=== PATIENT | female | born 1990 | race Caucasian/White ===

== ENCOUNTER 2017-03-18 12:43 | Outpatient (CLI) | payer BC ==
--- NOTE | 2017-03-18 17:15 | XRAY Report ---
EXAM: CHEST RADIOGRAPHY EXAM DATE: 03/18/2017 01:18 PM. CLINICAL HISTORY: R50.9. COMPARISON: None. TECHNIQUE: 2 views. FINDINGS: Lungs/Pleura: There is right lower lobe infiltrate present. No effusion or pneumothorax. Mediastinum: Heart and mediastinal contours are unremarkable. Other: None. IMPRESSION: Right lower lobe infiltrate. [facility] Referring Provider Line: [phone] SITE ID: [id number]
== END 2017-03-18 12:44 | disposition home or self-care (01) ==
LOC: LAB 12:43
PROVIDERS: ATTEND Physician Assistant Medical
DX: R91.8 Other nonspecific abnormal finding of lung field (principal)
CPT/HCPCS: 71020; 87275; 87276

== ENCOUNTER 2020-08-18 08:00 | Outpatient (CLI) | payer BC, OTHER ==
--- NOTE | 2020-08-19 15:10 | XRAY Report ---
PROCEDURE: Foot 2 View LT INDICATIONS: Foot pain TECHNIQUE: 2 views of the foot were acquired. COMPARISON: June 19, 2015 FINDINGS: Bones: No fractures or dislocations. No suspicious bony lesions. Soft tissues: No tibiotalar joint effusion. Achilles tendon appears normal. IMPRESSION: Unremarkable left foot radiographs Reviewed by: Isaiah Dolan MD on 08/18/2020 11:45 AM PDT Approved by: Isaiah Dolan MD on 08/18/2020 11:45 AM PDT Station ID: [id number]
== END 2020-08-18 23:59 | disposition home or self-care (01) ==
LOC: DI.N 08:00
PROVIDERS: ATTEND Nurse Practitioner
DX: M79.672 Pain in left foot (principal)

== ENCOUNTER 2020-12-25 08:00 | Outpatient (CLI) | payer OTHER ==
[2020-12-25 18:10] LABS: BASOPHILS # (AUTO) 0.1 10^3/uL (0.0-0.1); BASOPHILS % (AUTO) 0.8 %; EOSINOPHILS # (AUTO) 0.1 10^3/uL (0.0-0.7); EOSINOPHILS % (AUTO) 1.3 %; HCT - HEMATOCRIT 38.3 % (37.0-47.0); HGB - HEMOGLOBIN 11.9 g/dL (12.0-16.0); LYMPHOCYTES # (AUTO) 1.9 10^3/uL (1.5-3.5); LYMPHOCYTES % (AUTO) 24.6 %; MEAN CORPUSCULAR HEMOGLOBIN 26.7 pg (27.0-31.0); MEAN CORPUSCULAR HGB CONC 31.1 g/dL (32.0-36.0); MEAN CORPUSCULAR VOLUME 86.1 fL (81.0-99.0); MEAN PLATELET VOLUME 10.1 fL (7.9-10.8); MONOCYTES # (AUTO) 0.6 10^3/uL (0.0-1.0); MONOCYTES % (AUTO) 7.4 %; NEUTROPHILS % (AUTO) 65.8 %; PLT - PLATELET COUNT 333 10^3/uL (130-450); RED BLOOD COUNT 4.45 10^6/uL (4.20-5.40); WHITE BLOOD COUNT 7.6 x10^3/uL (4.8-10.8)
[2020-12-25 18:42] LABS: ALBUMIN/GLOBULIN RATIO 1.2 (1.0-2.2); BILIRUBIN,TOTAL 0.6 mg/dL (0.2-1.0); CREATININE 0.8 mg/dL (0.4-1.0); POTASSIUM 3.9 mmol/L (3.5-5.0); TOTAL PROTEIN 7.4 g/dL (6.7-8.2)
[2020-12-26 12:56] LABS: HEPATITIS B SURFACE ANTIGEN NON-REACTIVE (NON-REACTIVE)
[2020-12-26 12:57] LABS: HEPATITIS C ANTIBODY NON-REACTIVE (NON-REACTIVE)
[2020-12-26 14:46] LABS: HIV AG/AB 4TH GEN NON-REACTIVE (NON-REACTIVE)
[2020-12-28 15:26] LABS: NIL 0.02 IU/mL
== END 2020-12-25 23:59 | disposition home or self-care (01) ==
LOC: LAB.WCP 08:00
PROVIDERS: ATTEND Physician Assistant
DX: L94.0 Localized scleroderma [morphea] (principal)
CPT/HCPCS: 36415; 80053; 85025; 86480; 86803; 87340; 87389

== ENCOUNTER 2021-02-18 13:23 | Outpatient (CLI) | payer OTHER ==
[2021-02-18 18:19] LABS: BASOPHILS # (AUTO) 0.1 10^3/uL (0.0-0.1); BASOPHILS % (AUTO) 0.8 %; EOSINOPHILS # (AUTO) 0.1 10^3/uL (0.0-0.7); EOSINOPHILS % (AUTO) 1.8 %; HCT - HEMATOCRIT 38.7 % (37.0-47.0); HGB - HEMOGLOBIN 11.5 g/dL (12.0-16.0); LYMPHOCYTES # (AUTO) 1.8 10^3/uL (1.5-3.5); LYMPHOCYTES % (AUTO) 22.1 %; MEAN CORPUSCULAR HEMOGLOBIN 26.1 pg (27.0-31.0); MEAN CORPUSCULAR HGB CONC 29.7 g/dL (32.0-36.0); MEAN PLATELET VOLUME 9.7 fL (7.9-10.8); MONOCYTES # (AUTO) 0.6 10^3/uL (0.0-1.0); MONOCYTES % (AUTO) 6.9 %; NEUTROPHILS # (AUTO) 5.4 10^3/uL (1.5-6.6); NEUTROPHILS % (AUTO) 67.9 %; PLT - PLATELET COUNT 317 10^3/uL (130-450); RED CELL DISTRIBUTION WIDTH 14.7 % (12.0-15.0)
[2021-02-18 18:42] LABS: ALBUMIN/GLOBULIN RATIO 1.2 (1.0-2.2); BILIRUBIN,TOTAL 0.4 mg/dL (0.2-1.0); CALCIUM 9.4 mg/dL (8.5-10.3); CREATININE 0.9 mg/dL (0.4-1.0); POTASSIUM 3.9 mmol/L (3.5-5.0); TOTAL PROTEIN 7.4 g/dL (6.7-8.2)
== END 2021-02-18 23:59 | disposition home or self-care (01) ==
LOC: LAB.WCP 13:23
PROVIDERS: ATTEND Physician Assistant
DX: L94.0 Localized scleroderma [morphea] (principal)
CPT/HCPCS: 36415; 80053; 82955; 85025

== ENCOUNTER 2021-03-18 08:44 | Outpatient (CLI) | payer OTHER ==
--- NOTE | 2021-03-19 07:52 | Ultrasound Report ---
LIMITED ULTRASOUND OF LEFT BREAST: 03/18/2021 CLINICAL: Palpable left breast lump. Comparison is made to exam dated: 03/18/2021 mammogram - [facility]. Real-time ultrasound of the left breast 9 o'clock region was performed. Rucker scale images of the re al-time examination were reviewed. No significant abnormalities were seen sonographically in the left breast. IMPRESSION: NEGATIVE There is no sonographic evidence of malignancy. There is no abnormality seen in the left breast to correspond with the area of clinical concern and p alpable abnormality in the middle depth of the inner aspect of the breast, however, recommend clinic al follow up for persistent or worsening symptoms, or development of any clinically suspicious findin gs. Findings and recommendations were conveyed to the patient during today's evaluation. This exam was interpreted at Station ID: [id number]. Electronically Signed By: Fidel Bocanegra M.D. aty/:03/18/2021 10:16:32 Ultrasound BI-RADS: 1 Negative BI-RADS CATEGORY: (1) - 1 Unspecified - other recall n/a LATERALITY: (B)
--- NOTE | 2021-03-19 07:52 | Mammography Report ---
BILATERAL DIGITAL DIAGNOSTIC MAMMOGRAM 3D/2D: 03/18/2021 CLINICAL: Baseline exam. Palpable left breast lump. No prior exams were available for comparison. There are scattered fibroglandular elements in both br easts. No significant masses, calcifications, or other findings are seen in either breast. IMPRESSION: INCOMPLETE: NEEDS ADDITIONAL IMAGING EVALUATION There is no abnormality seen in the left breast to correspond with the area of clinical concern and p alpable abnormality indicated by triangular marker in the middle depth of the inner aspect of the lef t breast. An ultrasound is recommended for further evaluation and is scheduled to immediately follow this exami nation. This exam was interpreted at Station ID: [id number]. NOTE: For mammograms, a report in lay terms will be sent to the patient. Approximately 15% of breast malignancies will not be visualized mammographically. In the management of a palpable breast mass, a negative mammogram must not discourage biopsy of a clinically suspicious lesion. Electronically Signed By: Fidel Bocanegra M.D. aty/:03/18/2021 09:39:07 ACR BI-RADS Category 0: Incomplete 3340F PARENCHYMAL PATTERN: (A) - The breast(s) demonstrate(s) scattered fibroglandular densities. BI-RADS CATEGORY: (0) - 0 Ultrasound [id number] Immediate follow-up LATERALITY: (L)
== END 2021-03-18 08:45 | disposition home or self-care (01) ==
LOC: DI 08:44
PROVIDERS: ATTEND Family Medicine
DX: N63.20 Unspecified lump in the left breast, unspecified quadrant (principal)

== ENCOUNTER 2021-05-21 08:00 | Outpatient (CLI) | payer OTHER ==
[2021-05-21 17:53] LABS: BASOPHILS # (AUTO) 0.1 10^3/uL (0.0-0.1); BASOPHILS % (AUTO) 0.9 %; EOSINOPHILS # (AUTO) 0.1 10^3/uL (0.0-0.7); EOSINOPHILS % (AUTO) 1.3 %; HCT - HEMATOCRIT 36.9 % (37.0-47.0); HGB - HEMOGLOBIN 11.5 g/dL (12.0-16.0); LYMPHOCYTES # (AUTO) 1.9 10^3/uL (1.5-3.5); LYMPHOCYTES % (AUTO) 23.2 %; MEAN CORPUSCULAR HEMOGLOBIN 26.4 pg (27.0-31.0); MEAN CORPUSCULAR HGB CONC 31.2 g/dL (32.0-36.0); MEAN CORPUSCULAR VOLUME 84.6 fL (81.0-99.0); MEAN PLATELET VOLUME 11.1 fL (7.9-10.8); MONOCYTES # (AUTO) 0.5 10^3/uL (0.0-1.0); MONOCYTES % (AUTO) 5.9 %; NEUTROPHILS # (AUTO) 5.4 10^3/uL (1.5-6.6); NEUTROPHILS % (AUTO) 68.3 %; PLT - PLATELET COUNT 317 10^3/uL (130-450); RED BLOOD COUNT 4.36 10^6/uL (4.20-5.40); RED CELL DISTRIBUTION WIDTH 13.7 % (12.0-15.0)
== END 2021-05-21 23:59 | disposition home or self-care (01) ==
LOC: LAB.WCP 08:00
PROVIDERS: ATTEND Physician Assistant
DX: L94.0 Localized scleroderma [morphea] (principal)
CPT/HCPCS: 36415; 85025

== ENCOUNTER 2021-06-24 15:31 | Outpatient (CLI) | payer OTHER ==
[2021-06-24 19:21] LABS: THYROID STIMULATING HORMONE 3.81 uIU/mL (0.34-5.60)
[2021-06-24 19:26] LABS: HCG,QUALITATIVE BLOOD NEGATIVE
== END 2021-06-24 15:32 | disposition home or self-care (01) ==
LOC: LAB.N 15:31
PROVIDERS: ATTEND Family Medicine
DX: N93.9 Abnormal uterine and vaginal bleeding, unspecified (principal)
CPT/HCPCS: 36415; 81599; 84402; 84403; 84443; 84703

== ENCOUNTER 2021-07-02 08:52 | Outpatient (CLI) | payer OTHER ==
--- NOTE | 2021-07-02 21:25 | Ultrasound Report ---
PROCEDURE: Pelvic w/Transvaginal INDICATIONS: ABN UTERINE BLEEDING TECHNIQUE: Real-time scanning was performed of the pelvic organs, with image documentation. Additional endovagi nal scanning was necessary due to incomplete visualization of the adnexal and endometrial structures by transabdominal scanning. COMPARISON: None. FINDINGS: Transabdominal scanning: Limited scanning through the kidneys shows no hydronephrosis. No pathologi c free abdominal or pelvic fluid. Endovaginal scanning: Uterus: Uterus is enlarged measuring 1.7 x 4.5 x 6.3 cm. The endometrium measures 11 mm in combined thickness. While it is somewhat heterogeneous in appearance, no focal mass is identified. Nabothian cysts are noted. Ovaries: Right ovary measures 4.4 x 3.0 x 3.1 cm, volume 21 cc. Left ovary measures 5.2 x 2.1 x 3.0 cm, volume 17 cc. Focus of decreased echogenicity is present within the left ovary measuring 23 x 14 x 13 mm. IMPRESSION: Heterogeneous appearance of the endometrium without focal mass. As clinically indicated, interval ult rasound follow-up may be obtained. Small simple left ovarian cyst. Reviewed by: Maria G Bunn MD on 07/02/2021 9:23 PM PST Approved by: Maria G Bunn MD on 07/02/2021 9:23 PM PST Station ID: [id number]
== END 2021-07-02 08:53 | disposition home or self-care (01) ==
LOC: DI 08:52
PROVIDERS: ATTEND Family Medicine
DX: N93.9 Abnormal uterine and vaginal bleeding, unspecified (principal); N83.292 Other ovarian cyst, left side

== ENCOUNTER 2021-09-17 10:50 | Outpatient (CLI) | payer OTHER ==
[2021-09-17 17:43] LABS: BASOPHILS # (AUTO) 0.1 10^3/uL (0.0-0.1); BASOPHILS % (AUTO) 0.6 %; EOSINOPHILS # (AUTO) 0.1 10^3/uL (0.0-0.7); EOSINOPHILS % (AUTO) 1.4 %; HGB - HEMOGLOBIN 10.4 g/dL (12.0-16.0); LYMPHOCYTES # (AUTO) 1.9 10^3/uL (1.5-3.5); LYMPHOCYTES % (AUTO) 23.4 %; MEAN CORPUSCULAR HEMOGLOBIN 24.5 pg (27.0-31.0); MEAN CORPUSCULAR HGB CONC 29.7 g/dL (32.0-36.0); MEAN CORPUSCULAR VOLUME 82.4 fL (81.0-99.0); MONOCYTES # (AUTO) 0.5 10^3/uL (0.0-1.0); MONOCYTES % (AUTO) 5.9 %; NEUTROPHILS # (AUTO) 5.5 10^3/uL (1.5-6.6); NEUTROPHILS % (AUTO) 68.2 %; PLT - PLATELET COUNT 414 10^3/uL (130-450); RED BLOOD COUNT 4.25 10^6/uL (4.20-5.40); RED CELL DISTRIBUTION WIDTH 14.8 % (12.0-15.0); WHITE BLOOD COUNT 8.1 x10^3/uL (4.8-10.8)
[2021-09-17 17:53] LABS: ALBUMIN 4.1 g/dL (3.2-5.5); ALBUMIN/GLOBULIN RATIO 1.3 (1.0-2.2); BILIRUBIN,TOTAL 0.3 mg/dL (0.2-1.0); CALCIUM 9.6 mg/dL (8.5-10.3); CREATININE 0.8 mg/dL (0.4-1.0); POTASSIUM 3.7 mmol/L (3.5-5.0); TOTAL PROTEIN 7.3 g/dL (6.7-8.2)
== END 2021-09-17 10:51 | disposition home or self-care (01) ==
LOC: LAB.N 10:50
DX: Z79.899 Other long term (current) drug therapy (principal)
CPT/HCPCS: 36415; 80053; 85025

== ENCOUNTER 2021-10-26 13:15 | Outpatient (CLI) | payer OTHER ==
[2021-10-26 17:49] LABS: ALBUMIN 4.1 g/dL (3.2-5.5); ALBUMIN/GLOBULIN RATIO 1.3 (1.0-2.2); ALKALINE PHOSPHATASE 53 IU/L (42-121); ALT ALANINE AMINOTRANSFERASE 22 IU/L (10-60); AST ASPARTATE AMINOTRANSFERASE 21 IU/L (10-42); BILIRUBIN,TOTAL < 0.2 mg/dL (0.2-1.0); BUN - BLOOD UREA NITROGEN 11 mg/dL (6-20); CALCIUM 9.6 mg/dL (8.5-10.3); CARBON DIOXIDE - CO2 27 mmol/L (21-32); CHLORIDE 104 mmol/L (101-111); CREATININE 0.8 mg/dL (0.4-1.0); GFR - MDRD 83 (>89); GLUCOSE 91 mg/dL (70-100); POTASSIUM 3.9 mmol/L (3.5-5.0); SODIUM 137 mmol/L (135-145); TOTAL PROTEIN 7.2 g/dL (6.7-8.2)
[2021-10-26 17:53] LABS: BASOPHILS # (AUTO) 0.1 10^3/uL (0.0-0.1); BASOPHILS % (AUTO) 0.8 %; EOSINOPHILS # (AUTO) 0.1 10^3/uL (0.0-0.7); EOSINOPHILS % (AUTO) 1.3 %; HCT - HEMATOCRIT 32.1 % (37.0-47.0); HGB - HEMOGLOBIN 9.1 g/dL (12.0-16.0); LYMPHOCYTES # (AUTO) 2.2 10^3/uL (1.5-3.5); LYMPHOCYTES % (AUTO) 28.3 %; MEAN CORPUSCULAR HEMOGLOBIN 23.1 pg (27.0-31.0); MEAN CORPUSCULAR HGB CONC 28.3 g/dL (32.0-36.0); MEAN CORPUSCULAR VOLUME 81.5 fL (81.0-99.0); MEAN PLATELET VOLUME 9.4 fL (7.9-10.8); MONOCYTES # (AUTO) 0.5 10^3/uL (0.0-1.0); NEUTROPHILS # (AUTO) 4.8 10^3/uL (1.5-6.6); NEUTROPHILS % (AUTO) 62.1 %; PLT - PLATELET COUNT 327 10^3/uL (130-450); RED BLOOD COUNT 3.94 10^6/uL (4.20-5.40); RED CELL DISTRIBUTION WIDTH 15.5 % (12.0-15.0); WHITE BLOOD COUNT 7.7 x10^3/uL (4.8-10.8)
[2021-10-26 18:26] LABS: PLATELET ESTIMATE, MANUAL NORMAL (130-450,000) (NORMAL); PLATELET MORPHOLOGY NORMAL APPEARANCE (NORMAL); SLIDE REVIEW? Indicated; WBC MORPHOLOGY (MULTIPLE) NORMAL APPEARANCE (NORMAL)
== END 2021-10-26 13:16 | disposition home or self-care (01) ==
LOC: LAB.N 13:15
PROVIDERS: ATTEND Physician Assistant
DX: Z79.899 Other long term (current) drug therapy (principal)
CPT/HCPCS: 36415; 80053; 85025

== ENCOUNTER 2022-01-19 09:28 | Outpatient (CLI) | payer OTHER ==
[2022-01-19 13:11] LABS: % IRON SATURATION 3 % (20-50); IRON 13 ug/dL (28-170); TOTAL IRON BINDING CAPACITY 486 ug/dL (250-450); TRANSFERRIN 347 mg/dL (192-382)
== END 2022-01-19 09:29 | disposition home or self-care (01) ==
LOC: LAB.N 09:28
PROVIDERS: ATTEND Physician Assistant
DX: D64.9 Anemia, unspecified (principal)
CPT/HCPCS: 36415; 81599; 82728; 83020; 83540; 84466

== ENCOUNTER 2022-01-28 09:25 | Outpatient (CLI) | payer OTHER | END 2022-01-28 09:26 | disposition home or self-care (01) | LOC: DI 09:25 | PROVIDERS: ATTEND Physician Assistant | DX: R01.1 Cardiac murmur, unspecified (principal) | CPT/HCPCS: 93306 ==

== ENCOUNTER 2022-03-30 08:00 | Outpatient (CLI) | payer OTHER ==
[2022-03-30 18:22] LABS: BASOPHILS # (AUTO) 0.1 10^3/uL (0.0-0.1); EOSINOPHILS # (AUTO) 0.1 10^3/uL (0.0-0.7); EOSINOPHILS % (AUTO) 1.5 %; HCT - HEMATOCRIT 40.6 % (37.0-47.0); HGB - HEMOGLOBIN 12.1 g/dL (12.0-16.0); LYMPHOCYTES # (AUTO) 1.3 10^3/uL (1.5-3.5); LYMPHOCYTES % (AUTO) 25.5 %; MEAN CORPUSCULAR HEMOGLOBIN 24.1 pg (27.0-31.0); MEAN CORPUSCULAR HGB CONC 29.8 g/dL (32.0-36.0); MEAN CORPUSCULAR VOLUME 80.9 fL (81.0-99.0); MEAN PLATELET VOLUME 10.8 fL (7.9-10.8); MONOCYTES # (AUTO) 0.7 10^3/uL (0.0-1.0); NEUTROPHILS # (AUTO) 3.1 10^3/uL (1.5-6.6); NEUTROPHILS % (AUTO) 58.8 %; PLT - PLATELET COUNT 328 10^3/uL (130-450); RED BLOOD COUNT 5.02 10^6/uL (4.20-5.40); RED CELL DISTRIBUTION WIDTH 21.4 % (12.0-15.0); WHITE BLOOD COUNT 5.3 x10^3/uL (4.8-10.8)
[2022-03-30 18:33] LABS: ALBUMIN 4.2 g/dL (3.2-5.5); ALBUMIN/GLOBULIN RATIO 1.2 (1.0-2.2); BILIRUBIN,TOTAL 0.6 mg/dL (0.2-1.0); CALCIUM 9.6 mg/dL (8.5-10.3); CREATININE 0.8 mg/dL (0.4-1.0); TOTAL PROTEIN 7.6 g/dL (6.7-8.2)
[2022-03-30 19:39] LABS: PLATELET ESTIMATE, MANUAL NORMAL (130-450,000) (NORMAL); PLATELET MORPHOLOGY NORMAL APPEARANCE (NORMAL); RBC MORPHOLOGY (MULTIPLE) 3+ ANISOCYTOSIS (NORMAL); SLIDE REVIEW? Indicated
== END 2022-03-30 23:59 | disposition home or self-care (01) ==
LOC: LAB.N 08:00
PROVIDERS: ATTEND Physician Assistant
DX: Z79.899 Other long term (current) drug therapy (principal)
CPT/HCPCS: 36415; 80053; 85025

== ENCOUNTER 2022-03-30 12:37 | Outpatient (CLI) | payer OTHER | END 2022-03-30 12:38 | disposition home or self-care (01) | LOC: LAB.N 12:37 | PROVIDERS: ATTEND Internal Medicine | DX: Z53.9 Procedure and treatment not carried out, unspecified reason (principal) ==

== ENCOUNTER 2022-04-13 13:22 | Outpatient (CLI) | payer OTHER ==
[2022-04-13 17:26] LABS: BASOPHILS # (AUTO) 0.1 10^3/uL (0.0-0.1); BASOPHILS % (AUTO) 0.5 %; EOSINOPHILS # (AUTO) 0.1 10^3/uL (0.0-0.7); EOSINOPHILS % (AUTO) 0.9 %; HCT - HEMATOCRIT 41.2 % (37.0-47.0); HGB - HEMOGLOBIN 12.3 g/dL (12.0-16.0); LYMPHOCYTES # (AUTO) 1.9 10^3/uL (1.5-3.5); LYMPHOCYTES % (AUTO) 19.3 %; MEAN CORPUSCULAR HEMOGLOBIN 25.2 pg (27.0-31.0); MEAN CORPUSCULAR HGB CONC 29.9 g/dL (32.0-36.0); MEAN CORPUSCULAR VOLUME 84.3 fL (81.0-99.0); MEAN PLATELET VOLUME 10.5 fL (7.9-10.8); MONOCYTES # (AUTO) 0.7 10^3/uL (0.0-1.0); MONOCYTES % (AUTO) 7.4 %; NEUTROPHILS # (AUTO) 7.1 10^3/uL (1.5-6.6); NEUTROPHILS % (AUTO) 71.6 %; PLT - PLATELET COUNT 370 10^3/uL (130-450); RED BLOOD COUNT 4.89 10^6/uL (4.20-5.40); RED CELL DISTRIBUTION WIDTH 20.2 % (12.0-15.0); WHITE BLOOD COUNT 9.9 x10^3/uL (4.8-10.8)
[2022-04-13 17:49] LABS: % IRON SATURATION 24 % (20-50); IRON 97 ug/dL (28-170); TOTAL IRON BINDING CAPACITY 410 ug/dL (250-450); TRANSFERRIN 293 mg/dL (192-382)
[2022-04-13 18:33] LABS: PLATELET ESTIMATE, MANUAL NORMAL (130-450,000) (NORMAL); PLATELET MORPHOLOGY NORMAL APPEARANCE (NORMAL); RBC MORPHOLOGY (MULTIPLE) 3+ ANISOCYTOSIS (NORMAL); SLIDE REVIEW? Indicated
== END 2022-04-13 13:23 | disposition home or self-care (01) ==
LOC: LAB.N 13:22
PROVIDERS: ATTEND Physician Assistant
DX: D50.9 Iron deficiency anemia, unspecified (principal)
CPT/HCPCS: 36415; 82728; 83540; 84466; 85025

== ENCOUNTER 2022-08-10 15:09 | Outpatient (CLI) | payer MEDICAID ==
[2022-08-10 18:36] LABS: BASOPHILS # (AUTO) 0.1 10^3/uL (0.0-0.1); BASOPHILS % (AUTO) 0.7 %; EOSINOPHILS # (AUTO) 0.2 10^3/uL (0.0-0.7); EOSINOPHILS % (AUTO) 1.7 %; HCT - HEMATOCRIT 43.2 % (37.0-47.0); HGB - HEMOGLOBIN 13.6 g/dL (12.0-16.0); LYMPHOCYTES # (AUTO) 1.9 10^3/uL (1.5-3.5); LYMPHOCYTES % (AUTO) 21.9 %; MEAN CORPUSCULAR HGB CONC 31.5 g/dL (32.0-36.0); MEAN CORPUSCULAR VOLUME 95.4 fL (81.0-99.0); MEAN PLATELET VOLUME 10.6 fL (7.9-10.8); MONOCYTES # (AUTO) 0.6 10^3/uL (0.0-1.0); MONOCYTES % (AUTO) 7.2 %; NEUTROPHILS % (AUTO) 68.2 %; PLT - PLATELET COUNT 293 10^3/uL (130-450); RED BLOOD COUNT 4.53 10^6/uL (4.20-5.40); RED CELL DISTRIBUTION WIDTH 12.9 % (12.0-15.0); WHITE BLOOD COUNT 8.9 x10^3/uL (4.8-10.8)
[2022-08-11 14:48] LABS: % IRON SATURATION 23 % (20-50); IRON 82 ug/dL (28-170); TOTAL IRON BINDING CAPACITY 351 ug/dL (250-450); TRANSFERRIN 251 mg/dL (192-382)
== END 2022-08-10 15:10 | disposition home or self-care (01) ==
LOC: LAB.N 15:09
PROVIDERS: ATTEND Physician Assistant
DX: D50.9 Iron deficiency anemia, unspecified (principal)
CPT/HCPCS: 36415; 82728; 83540; 84466; 85025

== ENCOUNTER 2023-04-14 15:48 | Outpatient (CLI) | payer OTHER ==
--- NOTE | 2023-04-14 22:25 | Ultrasound Report ---
PROCEDURE: Duplex Upr Ext Arterial Bilat INDICATIONS: ABN BLOOD PRESSURE FINDINGS TECHNIQUE: Color and pulse Doppler interrogation was performed of both upper extremity arterial systems, with im age documentation. COMPARISON: None. FINDINGS: Right upper extremity: Subclavian artery (mid): 39 cm/sec, with monophasic flow. Axillary artery: 41 cm/sec, with biphasic flow. Brachial artery (mid): 110 cm/sec, with triphasic flow. Radial artery (proximal): 61 cm/sec, with triphasic flow. Radial artery (mid): 70 cm/sec, with triphasic flow. Radial artery (distal): 54 cm/sec, with triphasic flow. Ulnar artery (proximal): 73 cm/sec, with triphasic flow. Ulnar artery (mid): 52 cm/sec. with triphasic flow. Ulnar artery (distal): 47 cm/sec, with triphasic flow. Rucker-scale imaging description: Visualized vessels are widely patent. Left upper extremity: Subclavian artery (mid): 60 cm/sec, with triphasic flow. Axillary artery: 140 cm/sec, with triphasic flow. Brachial artery (mid): 116 cm/sec, with triphasic flow. Radial artery (proximal): 40 cm/sec, with triphasic flow. Radial artery (mid): 52 cm/sec, with triphasic flow. Radial artery (distal): 28 cm/sec. with biphasic flow. Ulnar artery (proximal): 77 cm/sec, with triphasic flow. Ulnar artery (mid): 40 cm/sec, with triphasic flow. Ulnar artery (distal): 37 cm/sec. with triphasic flow. Rucker-scale imaging description: Visualized vessels are widely patent. IMPRESSION: 1. Monophasic flow in the right mid subclavian artery and axillary artery suggest a possible inflow s tenosis involving either the brachiocephalic artery or proximal right subclavian artery. 2. Otherwise unremarkable right upper extremity arterial ultrasound. 3. Unremarkable left upper extremity arterial ultrasound. Patent vessels and normal waveforms. Comment: Consider CTA chest/lower neck versus MRA chest/lower neck to evaluate for a possible brachyc ephalic artery stenosis or proximal right subclavian stenosis. Reviewed by: Shane Mckenna MD on 04/14/2023 10:24 PM PST Approved by: Shane Mckenna MD on 04/14/2023 10:24 PM PST Station ID: [id number]
== END 2023-04-14 15:49 | disposition home or self-care (01) ==
LOC: DI 15:48
PROVIDERS: ATTEND Physician Assistant
DX: Z01.31 Encounter for examination of blood pressure with abnormal findings (principal)
CPT/HCPCS: 93930

== ENCOUNTER 2023-05-12 14:04 | Outpatient (CLI) | payer BC ==
[2023-05-12 14:30] LABS: CREATININE 1.1 mg/dL (0.6-1.3)
[2023-05-12] MEDS ORDERED: iohexoL-300 100 ML VIAL ONE (14:42)
[2023-05-12] MEDS ORDERED: iohexoL-300 100 ML VIAL IVP ONE (16:35)
[2023-05-19] MEDS ORDERED: iohexoL-300 100 ML VIAL ONE (18:14)
[2023-05-19] MEDS ORDERED: iohexoL-300 100 ML VIAL IVP ONE (19:22)
--- NOTE | 2023-05-22 11:27 | CT Report ---
PROCEDURE: CT angiogram neck INDICATIONS: ABN BLOOD PRESSURE, ABN US TECHNIQUE: Helical axial CT of the neck was obtained during the arterial phase of a intravenous cont rast injection utilizing an angiographic protocol. Multiplanar traditional and MIP reformats were al so obtained. COMPLIANCE STATEMENTS: Any estimate of proximal ICA stenosis was calculated using NASCET guidelines. Dose reduction techniques included either automated exposure control or adjustment of exposure romaine eters. COMPARISON: None. FINDINGS: Internal carotid arteries: Unremarkable. No significant stenosis. No dissection or occlusion. Common carotid arteries: Unremarkable. No significant stenosis. No dissection or occlusion. External carotid arteries: Unremarkable. No occlusion. Vertebral arteries: Unremarkable. No significant stenosis. No dissection or occlusion. Aortic Arch and Mediastinum: Partially visualized aortic arch unremarkable without evidence of aneury sm. Origins of the great vessels unremarkable. Other: Arterial phase soft tissues of the neck are unremarkable. IMPRESSION: Unremarkable CT angiogram of the neck. No atherosclerotic plaque stenosis or dissection. Reviewed by: Isaiah Dolan MD on 05/22/2023 10:26 AM [facility] Approved by: Isaiah Dolan MD on 05/22/2023 10:26 AM [facility] Station ID: [id number]
--- NOTE | 2023-05-22 17:41 | CT Report ---
PROCEDURE: Angio Chest INDICATIONS: ABN BLOOD PRESSURE, ABN US CONTRAST: Omni 300 100ml TECHNIQUE: After the administration of intravenous contrast, 2 mm axial images were acquired from the pulmonary apices to the posterior costophrenic angles during the arterial phase. In addition, 1 mm lung kernel and 5 mm soft tissue kernel reconstructions were performed. 3-dimensional coronal oblique maximum int ensity projection (MIP) reformats, 8 mm axial MIP, and 5 mm coronal and sagittal MPR reformats were t hen performed through the thorax. For radiation dose reduction, the following was used: automated exp osure control, adjustment of mA and/or kV according to patient size. COMPARISON: Bilateral upper extremity arterial ultrasound dated 04/14/2023 which suggested the possi bility of a inflow stenosis on the right involving the brachycephalic artery or proximal right subcla vian artery, based on monophasic flow in the right subclavian. FINDINGS: Image quality: Excellent. Large vessels: Classic three-vessel arch anatomy. Great vessel origins are widely patent. The brachio cephalic artery, right subclavian artery, and right axillary artery are well visualized, and are unre markable. The bilateral common carotid arteries are unremarkable as well. The left subclavian and lef t axillary artery are also unremarkable. No filling defects within the opacified pulmonary arteries, accounting for motion and contrast timing. No evidence of acute aortic syndrome or aortic aneurysm. Lungs and pleura: No consolidation. No pleural effusions. No pneumothorax. No suspicious pulmonary n odules which require follow up. Mediastinum: Heart size is normal. No pericardial effusion. No large vessel abnormality. No mediastin al adenopathy by size criteria. Chest wall and lower neck: Thyroid is unremarkable. No axillary or supraclavicular adenopathy by size . Bones: No aggressive osseous abnormality. Upper Abdomen: Unremarkable. IMPRESSION: 1. Unremarkable CTA chest. Of note, the inflow to the right upper extremity is unremarkable. 2. No acute pulmonary process. Reviewed by: Shane Mckenna MD on 05/22/2023 5:39 PM PST Approved by: Shane Mckenna MD on 05/22/2023 5:39 PM PST Station ID: [id number]
== END 2023-05-12 14:05 | disposition home or self-care (01) ==
LOC: LAB 14:04
PROVIDERS: ATTEND Physician Assistant
DX: Z01.31 Encounter for examination of blood pressure with abnormal findings (principal); R60.0 Localized edema
CPT/HCPCS: 36415; 70498; 71275; 82565; Q9967

== ENCOUNTER 2023-07-26 18:22 | Emergency (ER) | payer BC, OTHER ==
[2023-07-26 18:31] VITALS: BP 145/75; O2SAT 100
--- NOTE | 2023-07-26 18:50 | ED Physician Documentation ---
PD HPI ABD PAIN - Stated complaint Stated Complaint: R SIDE PX - Chief complaint Chief Complaint: Abd Pain - History obtained from History obtained from: Patient - Additional information Additional information: 32-year-old woman presents for right upper quadrant pain. She developed right upper quadrant pain radiating to the side at 245 this afternoon. Vomited once but is no longer nauseous. She was here about 3 weeks ago for similar pain and diagnosed with gallstones and biliary colic and she had had an episode prior to that without particular diagnosis. Since her last visit she did see Dr. Man, but surgery is not scheduled. PD PAST MEDICAL HISTORY - Past Medical History Past Medical History: Yes Cardiovascular: Hypertension Respiratory: None Neuro: None Endocrine/Autoimmune: None GI: None MIS DIRECTOR: None : None HEENT: None Psych: None Musculoskeletal: None Derm: Other - Past Surgical History Past Surgical History: Yes HEENT: Other - Present Medications Home Medications: Ambulatory Orders Medication Instructions Recorded Confirmed Dicyclomine [Bentyl] 10 mg PO QID PRN #20 cap 07/03/23 07/26/23 HYDROcod/ACETAM 5/325 [Otto 5/325] 1 ea PO Q6H PRN #10 tablet 07/03/23 07/26/23 Hydroxychloroquine [Plaquenil] 200 mg PO BID 07/03/23 07/26/23 Ondansetron Odt [Zofran] 4 mg TL Q6H PRN #10 tablet 07/03/23 07/26/23 Pioglitazone [Actos] 15 mg PO DAILY 07/03/23 07/26/23 lisinopriL [Lisinopril] 7.5 mg ORAL DAILY 07/03/23 07/26/23 - Allergies Allergies/Adverse Reactions: Allergies Allergy/AdvReac Type Severity Reaction Status Date / Time No Known Drug Allergies Allergy Verified 07/26/23 18:25 - Social History Does the pt smoke?: No Smoking Status: Never smoker Does the pt drink ETOH?: Yes Does the pt have substance abuse?: No - Immunizations Immunizations are current?: Yes - POLST Patient has POLST: No PD ED PE NORMAL - Vitals Vital signs reviewed: Yes - General General: Alert and oriented X 3, No acute distress - Abdomen Abdomen: Normal bowel sounds, Soft, Other (Focally but mildly tender in the right upper quadrant) - Neuro Neuro: Alert and oriented X 3 Results - Vitals Vitals: Vital Signs - 24 hr 07/26/23 18:26 Temperature 36.3 C L Heart Rate 55 L Respiratory 18 Rate Blood Pressure 145/75 H O2 Saturation 100 Oxygen O2 Source Room air - Labs Labs: Laboratory Tests 07/26/23 07/26/23 07/26/23 18:40 18:45 18:45 WBC 13.2 H RBC 4.57 Hgb 14.4 Hct 43.2 MCV 94.5 MCH 31.5 H MCHC 33.3 RDW 12.1 Plt Count 343 MPV 10.0 Neut # (Auto) 10.6 H Lymph # (Auto) 1.5 Taylor # (Auto) 0.9 Eos # (Auto) 0.1 Baso # (Auto) 0.1 Absolute Nucleated RBC 0.00 Nucleated RBC % 0.0 Sodium 135 Potassium 3.7 Chloride 100 L Carbon Dioxide 28 Anion Gap 7.0 BUN 13 Creatinine 0.9 Estimated GFR (MDRD) 72 L Glucose 93 Calcium 10.3 Total Bilirubin 0.3 AST 22 ALT 22 Alkaline Phosphatase 60 Total Protein 8.0 Albumin 4.7 Globulin 3.3 Albumin/Globulin Ratio 1.4 Lipase 49 Urine Color YELLOW Urine Clarity CLOUDY Urine pH 6.0 Ur Specific Wainwright >=1.030 H Urine Protein 30 H Urine Glucose (UA) NEGATIVE Urine Ketones NEGATIVE Urine Occult Blood NEGATIVE Urine Nitrite NEGATIVE Urine Bilirubin NEGATIVE Urine Urobilinogen 0.2 (NORMAL) Ur Leukocyte Esterase NEGATIVE Urine RBC 0-5 Urine WBC 0-3 Ur Squamous Epith Cells MANY Squamous H Urine Bacteria Moderate H Urine Sperm PRESENT Ur Microscopic Review INDICATED Urine Culture Comments NOT INDICATED Urine HCG, Qual NEGATIVE PD Medical Decision Making - ED course ED course: 32-year-old woman with known gallstones presents with an apparent attack of biliary colic. She was administered Dilaudid and Toradol here with significant improvement in her pain and on reexamination at 7:45 PM she was nontender. She does have a mild leukocytosis on CBC, CMP was unremarkable without elevation in liver enzymes. Given that her pain had significant improvement and she was no longer tender I do not think she has cholecystitis at this juncture. Departure - Departure Disposition: 01 Home, Self Care Clinical Impression: Biliary colic Condition: Good Record reviewed to determine appropriate education?: Yes Instructions: ED Gallstone W Biliary Colic Follow-Up: Darius Man MD [Provider Admit Priv/Credential] - Comments: As discussed, a low-fat low-protein diet between now and the surgery will help decrease gallbladder attacks. Return if pain worsens or new symptoms develop. Otherwise, call the surgeons office to get your surgery scheduled. Forms: PCP List
[2023-07-26 18:54] LABS: BILIRUBIN,URINE NEGATIVE (NEGATIVE); GLUCOSE, URINE (UA) NEGATIVE (NEGATIVE); KETONES,URINE (UA) NEGATIVE (NEGATIVE); LEUKOCYTE ESTERASE, URINE NEGATIVE (NEGATIVE); NITRITE,URINE NEGATIVE (NEGATIVE); OCCULT BLOOD,URINE NEGATIVE (NEGATIVE); PROTEIN,URINE 30 mg/dL (NEGATIVE); UROBILINOGEN,URINE 0.2 (NORMAL) E.U./dL (NORMAL)
[2023-07-26 18:55] LABS: CLARITY,URINE CLOUDY (CLEAR); HCG UR QUAL NEGATIVE
[2023-07-26 18:56] LABS: BACTERIA,URINE Moderate /HPF (None Seen); RBC,URINE 0-5 /HPF (0-5); SPERM,URINE PRESENT; SQUAMOUS EPITHELIAL CELL,UR MANY Squamous (<= Few)
[2023-07-26 18:57] LABS: WBC,URINE 0-3 /HPF (0-5)
[2023-07-26] MEDS: HYDROmorphone 1 MG/ML CARPUJECT IVP STA (18:59)
[2023-07-26] MEDS: KETOROLAC 15 MG/ML VIAL IVP STA (19:00)
[2023-07-26 19:04] LABS: BASOPHILS # (AUTO) 0.1 10^3/uL (0.0-0.1); BASOPHILS % (AUTO) 0.6 %; EOSINOPHILS # (AUTO) 0.1 10^3/uL (0.0-0.7); HCT - HEMATOCRIT 43.2 % (37.0-47.0); HGB - HEMOGLOBIN 14.4 g/dL (12.0-16.0); LYMPHOCYTES # (AUTO) 1.5 10^3/uL (1.5-3.5); LYMPHOCYTES % (AUTO) 11.4 %; MEAN CORPUSCULAR HEMOGLOBIN 31.5 pg (27.0-31.0); MEAN CORPUSCULAR HGB CONC 33.3 g/dL (32.0-36.0); MEAN CORPUSCULAR VOLUME 94.5 fL (81.0-99.0); MONOCYTES # (AUTO) 0.9 10^3/uL (0.0-1.0); MONOCYTES % (AUTO) 6.5 %; NEUTROPHILS # (AUTO) 10.6 10^3/uL (1.5-6.6); NEUTROPHILS % (AUTO) 80.3 %; PLT - PLATELET COUNT 343 10^3/uL (130-450); RED BLOOD COUNT 4.57 10^6/uL (4.20-5.40); RED CELL DISTRIBUTION WIDTH 12.1 % (12.0-15.0); WHITE BLOOD COUNT 13.2 x10^3/uL (4.8-10.8)
[2023-07-26 19:20] LABS: ALBUMIN 4.7 g/dL (3.2-5.5); ALBUMIN/GLOBULIN RATIO 1.4 (1.0-2.2); BILIRUBIN,TOTAL 0.3 mg/dL (0.2-1.0); CALCIUM 10.3 mg/dL (8.5-10.3); CREATININE 0.9 mg/dL (0.6-1.3); POTASSIUM 3.7 mmol/L (3.5-4.5)
== END 2023-07-26 20:04 | disposition home or self-care (01) ==
LOC: ED 18:22
DX: K80.50 Calculus of bile duct without cholangitis or cholecystitis without obstruction (principal); I10 Essential (primary) hypertension
CPT/HCPCS: 36415; 80053; 81001; 81025; 83690; 85025; 96374; 96375; 99283; J1170; 81003; 87086

== ENCOUNTER 2023-09-07 12:28 | Day surgery (SDC) | payer OTHER, BC ==
[~2023-09-07 12:28] MED LIST: ceFAZolin 1 GM VIAL ONE; ceFAZolin 2 GM VIAL ONE
[2023-09-07] MEDS: LACTATED RINGERS 1,000 ML IV ONE (12:32)
[2023-09-07] MEDS ORDERED: iohexoL-240 10 ML VIAL IVP ONE (12:42)
[2023-09-07 12:46] LABS: HCG UR QUAL NEGATIVE
--- NOTE | 2023-09-07 13:25 | ANESTHESIA ---
Pre-Anesthesia VS, & Labs - Diagnosis CHOLECYSTITIS - Procedure LAP BIGG Vital Signs: Temp Pulse Resp BP Pulse Ox O2 Flow Rate 36 C L 60 16 112/63 98 09/07/23 12:38 09/07/23 12:38 09/07/23 12:38 09/07/23 12:38 09/07/23 12:38 Height: 5 ft 11 in Weight (kg): 143 kg Body Mass Index: 43.9 BMI Classification: Morbidly Obese - NPO >8 hours - Is Patient ?: No (NEG UPT) Home Medications and Allergies Home Medications: Ambulatory Orders Levonorgestrel 20 Mcg/24H [Mirena] 20 mcg IU DAILY 08/31/23 Hydroxychloroquine [Plaquenil] 200 mg PO BID 07/03/23 Pioglitazone [Actos] 15 mg PO DAILY 07/03/23 lisinopriL [Lisinopril] 10 mg ORAL DAILY 07/03/23 Levonorgestrel 20 Mcg/24H [Mirena] 20 mcg IU DAILY 08/31/23 Allergies/Adverse Reactions: Allergies Allergy/AdvReac Type Severity Reaction Status Date / Time No Known Drug Allergies Allergy Verified 09/07/23 12:50 Anes History & Medical History - Anesthetic History Anesthesia Complications: reports: No previous complications Family history of Anesthesia Complications: Denies - Medical History Cardiovascular: reports: Hypertension (LISINOPRIL LAST NIGHT), Murmur (NL ECHO IN 2021) Gastrointestinal: reports: None Urinary: reports: None Neuro: reports: None Musculoskeletal: reports: None Endocrine/Autoimmune: reports: None Blood Disorders: reports: None Skin: reports: Other Smoking Status: Never smoker Psychosocial: reports: No issues indicated - Surgical History Eyes Ears Nose Throat (EENT): reports: Other Results - EKG Results EKG Comparison: Reviewed EKG - Echo Results Echo Results: Report reviewed Exam General: Alert, Oriented x3 Dental: WNL Mouth Openin Fingerbreadth Neck Mobility: Normal Mallampati classification: II Thyromental Distance: 4-6 cm Respiratory: Lungs clear Cardiovascular: Regular rate Plan Anesthesia Type: General Consent for Procedure(s) Verified and Reviewed: Yes Code Status: Attempt Resuscitation ASA classification: 2-Mild systemic disease Is this case an emergency?: No
[2023-09-07] MEDS ORDERED: ATROPINE ABBOJECT 1 MG/10 ML SYRINGE IVP PRN (13:28)
[2023-09-07] MEDS ORDERED: fentaNYL 100 MCG/2 ML VIAL IVP PRN (13:28)
[2023-09-07] MEDS ORDERED: METOCLOPRAMIDE 10 MG/2 ML VIAL IVP PRN (13:28)
[2023-09-07] MEDS ORDERED: MORPHINE 2 MG/ML CARPUJECT IVP PRN (13:28)
[2023-09-07] MEDS ORDERED: NALOXONE 0.4 MG/ML VIAL IVP PRN (13:28)
[2023-09-07] MEDS ORDERED: ONDANSETRON 4 MG/2 ML VIAL IVP PRN (13:28)
[2023-09-07] MEDS ORDERED: ePHEDrine 50 MG/ML VIAL IVP PRN (13:28)
[2023-09-07] MEDS ORDERED: MIDAZOLAM 2 MG/2 ML VIAL ONE (16:06)
[2023-09-07] MEDS ORDERED: fentaNYL 100 MCG/2 ML VIAL ONE ×2 (16:06→17:21)
[2023-09-07] MEDS ORDERED: LIDOCAINE-PF 2% 10 ML AMP SUBQ ONE (16:07)
[2023-09-07] MEDS ORDERED: PROPOFOL 200 MG/20 ML VIAL IVP ONE ×2 (16:07→18:29)
[2023-09-07] MEDS ORDERED: SUGAMMADEX 200 MG/2 ML VIAL IVP ONE (16:07)
--- NOTE | 2023-09-07 16:07 | HISTORY & PHYSICAL EXAMINATION ---
Chief Complaint - Chief Complaint Chief Complaint: here for gallbladder surgery History of Present Illness - History Obtained From Records Reviewed: yes History obtained from: pt Exam Limitations: none - History of Present Illness HPI Comment/Other: history attacks ruq/ epigastric pain. us gallstones and sludge. no signs or symptoms of cbd stones History - Past Medical History Cardiovascular: reports: Hypertension (LISINOPRIL LAST NIGHT), Murmur (NL ECHO IN 2021) Respiratory: reports: Pneumonia Neuro: reports: None Endocrine/Autoimmune: reports: None GI: reports: None SAND CARRIER: reports: None : reports: None HEENT: reports: None Psych: reports: Depression, Anxiety Musculoskeletal: reports: None Derm: reports: Other MRSA Hx?: No - Past Surgical History HEENT: reports: Other - POLST Patient has POLST: No Meds/Allgy - Home Medications Home Medications: Ambulatory Orders Medication Instructions Recorded Confirmed Hydroxychloroquine [Plaquenil] 200 mg PO BID 07/03/23 09/07/23 Pioglitazone [Actos] 15 mg PO DAILY 07/03/23 09/07/23 lisinopriL [Lisinopril] 10 mg ORAL DAILY 07/03/23 09/07/23 Levonorgestrel 20 Mcg/24H [Mirena] 20 mcg IU DAILY 08/31/23 08/31/23 - Allergies Allergies/Adverse Reactions: Allergies Allergy/AdvReac Type Severity Reaction Status Date / Time No Known Drug Allergies Allergy Verified 09/07/23 12:50 Review of Systems - Other Findings Other Findings: 10 pt ros as above otherwise unremarkable Exam - Vital Signs Vital Signs: Vital Signs x48h Temp Pulse Resp BP Pulse Ox 09/07/23 12:38 36 C L 60 16 112/63 98 - Physical Exam General Appearance: positive: No acute distress, Alert Eyes Bilateral: positive: PERRL, EOMI ENT: positive: No signs of dehydration Neck: positive: No JVD, Trachea midline Respiratory: positive: No respiratory distress Cardiovascular: positive: Regular rate & rhythm Abdomen: positive: No distention Neurologic/Psychiatric: positive: Oriented x3 Conclusion/Plan - Problem List (1) Gallstone Conclusion/Plan: chronic cholecystitis. plan lap moy. parq held and consent obtained Qualifiers: Cholecystitis acuity: chronic
[2023-09-07] MEDS ORDERED: DEXAMETHASONE 4 MG/ML VIAL ONE (16:08)
[2023-09-07] MEDS ORDERED: ONDANSETRON 4 MG/2 ML VIAL ONE (16:08)
[2023-09-07] MEDS ORDERED: ROCURONIUM 50 MG/5 ML VIAL ONE ×2 (16:08→17:14)
[2023-09-07] MEDS ORDERED: KETOROLAC 30 MG/ML VIAL ONE (17:42)
[2023-09-07] MEDS: BUPIVACAINE 0.25% PF 30 ML VIAL ONE (18:30)
[2023-09-07] MEDS ORDERED: ACETAMINOPHEN 1,000 MG/100 ML 1,000 MG/100 ML BAG IV ONE (18:45)
[2023-09-07] MEDS: LACTATED RINGERS 1,000 ML IV SCH ×2 (19:25→22:39)
--- NOTE | 2023-09-07 20:41 | OPERATIVE REPORT ---
Operative Report - General Procedure Date: 09/07/23 Planned Procedure: lap moy Pre-Op Diagnosis: chronic cholecystitis Procedure Performed: lap moy Post Op Diagnosis: chronic cholecystitis - Procedure Note Primary Surgeon: darcie reddy Anesthesia Technique: General ET tube, Local Pathology: gb Estimated Blood Loss (mL): 5 Drain/Tube Type: Other (none) Indications: gallstones and gallbladder pain Findings: distended galllbladder nearly obstructed with 3 cm stone Complications: none - Other Other Information/Narrative: The patient was properly identified, brought to the operating room and placed in supine position. Sequential compression devices were placed. General endotracheal anesthesia was induced. The patient was prepped and draped in a st erile fashion and given preoperative antibiotics. Local anesthetic was given to incision areas. An incision was made in the periumbilical area. Dissection proceeded down to fascia. The fascia was incised lifted upwards and abdomen entered with a Veress needle. CO2 was insufflated to a pressure of 15. An 11 mm trocar followed by a 30 degree scope was placed. There was no evidence of injury from Veress needle or trocar placement. Under direct vision 2 5 mm trochars were placed in the right upper quadrant and an 11 mm trocar was placed in the epigastrium. Body of the gallbladder was retracted anterior. Lateral attachments were partially taken down further mobilizing the gallbladder more anterior and away from the duodenum. The infundibulum of the gallbladder was then retracted right lateral and caudad. With minimal use of cautery a large bare cystic plate area or window was carefully created. The cystic duct was inspected from right lateral and left lateral positions. [] The cystic duct was then clipped at the gallbladder and 3 times slightly proximal and sharply divided. The cystic artery was clipped at the gallbladder and then 2 times slightly proximal and sharply divided. The gallbladder was mobilized off from the bed of the liver with hook cautery. The gallbladder was placed in Endo Catch bag and brought out through the epigastric trocar site. She had an appr oximately 3 cm hard gallstone. The gallbladder and gallstone was removed in pieces through the epigastric trocar site. Hemostasis was assured. Trochars were removed under direct vision. Fascia at the lower abdominal trocar sites was closed with [id number] 0 Vicryl suture. Epigastric site was closed with running O vicryl. Subcutaneous tissue was irrigated and skin closed with interrupted 4-0 Monocryl. Dressings were applied. Patient tolerated the procedure well was awakened and brought to recovery in good condition. .
[2023-09-07] MEDS ORDERED: SODIUM CHLORIDE FLUSH 0.9% 10 ML SYRINGE IVP PRN (20:42)
[2023-09-07] MEDS: HYDROmorphone 0.5 MG/0.5 ML SYRINGE IVP PRN (20:56)
[2023-09-07] MEDS ORDERED: ONDANSETRON ODT 4 MG TABLET TL PRN (21:03)
[2023-09-07] MEDS: ONDANSETRON 4 MG/2 ML VIAL IVP PRN (22:45)
[2023-09-08] MEDS: HYDROmorphone 1 MG/ML CARPUJECT IVP PRN (00:09)
[2023-09-08] MEDS: SODIUM CHLORIDE FLUSH 0.9% 10 ML SYRINGE IVP SCH (00:10)
--- NOTE | 2023-09-08 02:36 | ANESTHESIA POST OP EVALUATION ---
Anesthesia Post Eval - Post Anesthesia Eval Vitals: Last Vital Signs Temp 36.5 C 09/08/23 00:22 Pulse 52 L 09/08/23 00:22 Resp 20 09/08/23 00:22 BP 128/69 09/08/23 00:22 Pulse Ox 97 09/08/23 00:22 O2 Flow Rate CV Function Including HR & BP: Stable Pain Control: Satisfactory Nausea & Vomiting: Negative Mental Status: Baseline Respiratory Status: Airway Patent Hydration Status: Satisfactory Anesthesia Complications: None
[2023-09-08] MEDS: HYDROcod/ACETAM 5/325 MG TABLET PO PRN (05:34)
[2023-09-08 08:25] VITALS: BP 131/66; O2SAT 96
[2023-09-08] MEDS ORDERED: HYDROmorphone 0.5 MG/0.5 ML SYRINGE IVP PRN (09:14)
--- NOTE | 2023-09-08 10:00 | PHARMACY PROGRESS NOTE ---
- Best Possible Medication History Admit Date and Time: Processed by: Nursing As the person ultimately responsible for medication therapy, providers are able to order a medication from an existing home medication list in [facility] via the "Reconcile Routine" prior to Confirmation of that medication by academic support assistant. Such practice is discouraged except when the physician, in their clinical judgment, deems that a medical need exists for a medication without regard to previous use.
== END 2023-09-08 13:40 | disposition home or self-care (01) ==
LOC: SDS 12:28 → MS2 18:13 → SDS 09-08 13:40
PROVIDERS: ATTEND Surgery
PROC: 0FT44ZZ Resection of Gallbladder, Percutaneous Endoscopic Approach (ICD-10-PCS; principal; 2023-09-07 14:15)
DX: K80.10 Calculus of gallbladder with chronic cholecystitis without obstruction (principal); I10 Essential (primary) hypertension; E66.01 Morbid (severe) obesity due to excess calories; Z68.41 Body mass index [BMI] 40.0-44.9, adult
CPT/HCPCS: 47562; 81025; A9270; J0131; J1170; J7120; Q9966

== ENCOUNTER 2023-09-11 14:49 | Emergency (ER) | payer BC, OTHER ==
[2023-09-11 15:41] LABS: BASOPHILS % (AUTO) 0.6 %; EOSINOPHILS # (AUTO) 0.2 10^3/uL (0.0-0.7); EOSINOPHILS % (AUTO) 2.2 %; HCT - HEMATOCRIT 37.5 % (37.0-47.0); HGB - HEMOGLOBIN 12.2 g/dL (12.0-16.0); LYMPHOCYTES # (AUTO) 1.8 10^3/uL (1.5-3.5); LYMPHOCYTES % (AUTO) 26.4 %; MEAN CORPUSCULAR HEMOGLOBIN 30.3 pg (27.0-31.0); MEAN CORPUSCULAR HGB CONC 32.5 g/dL (32.0-36.0); MEAN CORPUSCULAR VOLUME 93.3 fL (81.0-99.0); MEAN PLATELET VOLUME 9.7 fL (7.9-10.8); MONOCYTES # (AUTO) 0.6 10^3/uL (0.0-1.0); MONOCYTES % (AUTO) 8.7 %; NEUTROPHILS # (AUTO) 4.3 10^3/uL (1.5-6.6); NEUTROPHILS % (AUTO) 61.8 %; PLT - PLATELET COUNT 223 10^3/uL (130-450); RED BLOOD COUNT 4.02 10^6/uL (4.20-5.40); RED CELL DISTRIBUTION WIDTH 11.9 % (12.0-15.0); WHITE BLOOD COUNT 6.9 x10^3/uL (4.8-10.8)
--- NOTE | 2023-09-11 15:45 | ED Physician Documentation ---
History of Present Illness - Stated complaint Stated Complaint: SOA,RT SHOULD PX,POST SURGERY - Chief complaint Chief Complaint: General - History obtained from History obtained from: Patient - Additonal information Additional information: Patient is a 32-year-old female presenting for evaluation of feeling shortness of air starting this morning. Patient had a cholecystectomy done laparoscopically by Dr. Man on . She reports feeling increasingly short of breath. No chest pain but did have some discomfort since the surgery in the right shoulder.No nausea or vomiting. Has not had a bowel movement since her surgery. She did take 1 stool softener today. She is using hydrocodone for pain. No fever, cough. Review of Systems Constitutional: denies: Fever Cardiac: denies: Chest pain / pressure Respiratory: reports: Dyspnea. denies: Cough GI: denies: Abdominal Pain, Vomiting : denies: Dysuria Musculoskeletal: denies: Extremity swelling PD PAST MEDICAL HISTORY - Past Medical History Cardiovascular: Hypertension, Murmur Respiratory: Pneumonia Neuro: None Endocrine/Autoimmune: None GI: None TOMOGRAPHIC TECH: None : None HEENT: None Psych: Depression, Anxiety Musculoskeletal: None Derm: Other - Past Surgical History Past Surgical History: Yes General: Cholecystectomy HEENT: Other - Present Medications Home Medications: Ambulatory Orders Medication Instructions Recorded Confirmed Hydroxychloroquine [Plaquenil] 200 mg PO BID 07/03/23 09/11/23 Pioglitazone [Actos] 15 mg PO DAILY 07/03/23 09/11/23 lisinopriL [Lisinopril] 10 mg ORAL DAILY 07/03/23 09/11/23 Levonorgestrel 20 Mcg/24H [Mirena] 20 mcg IU DAILY 08/31/23 09/11/23 HYDROcod/ACETAM 5/325 [Reagan 5/325] 1 each PO Q6H PRN #30 tablet 09/07/23 09/11/23 Ondansetron Odt [Zofran Odt] 4 mg PO Q6H PRN #15 tablet 09/07/23 09/11/23 Doxycycline [Vibramycin] 100 mg PO BID 09/11/23 09/11/23 - Allergies Allergies/Adverse Reactions: Allergies Allergy/AdvReac Type Severity Reaction Status Date / Time No Known Drug Allergies Allergy Verified 09/11/23 14:52 - Social History Does the pt smoke?: No Smoking Status: Never smoker Does the pt drink ETOH?: Yes Does the pt have substance abuse?: No - Immunizations Immunizations are current?: Yes - POLST Patient has POLST: No PD ED PE NORMAL - General General: Alert and oriented X 3, No acute distress, Well developed/nourished - HEENT HEENT: Atraumatic, Moist mucous membranes, Pharynx benign - Neck Neck: Supple, no meningeal sign - Cardiac Cardiac: RRR, Strong equal pulses - Respiratory Respiratory: No respiratory distress, Clear bilaterally - Abdomen Abdomen: Normal bowel sounds, Soft, Non tender, Non distended - Extremities Extremities: No edema Results - Vitals Vitals: Vital Signs - 24 hr 09/11/23 09/11/23 14:52 17:43 Temperature 36.8 C 37 C Heart Rate 60 68 Respiratory 16 20 Rate Blood Pressure 149/74 H 155/85 H O2 Saturation 99 98 Oxygen O2 Source Room air - EKG (time done) 1541 EKG releavant findings:: EKG personally interpreted by author of this note. Relevant findings are: Rate 48, sinus bradycardia, no STEMI, QTc 425 - Labs Labs: Laboratory Tests 09/11/23 09/11/23 09/11/23 15:34 15:34 15:34 WBC 6.9 RBC 4.02 L Hgb 12.2 Hct 37.5 MCV 93.3 MCH 30.3 MCHC 32.5 RDW 11.9 L Plt Count 223 MPV 9.7 Neut # (Auto) 4.3 Lymph # (Auto) 1.8 Victoria # (Auto) 0.6 Eos # (Auto) 0.2 Baso # (Auto) 0.0 Absolute Nucleated RBC 0.00 Nucleated RBC % 0.0 Sodium 137 Potassium 3.8 Chloride 105 Carbon Dioxide 26 Anion Gap 6.0 BUN 12 Creatinine 0.7 Estimated GFR (MDRD) 96 Glucose 97 Calcium 9.2 Total Bilirubin 0.3 AST 31 ALT 41 Alkaline Phosphatase 40 L Troponin I High Sens 3.1 B-Natriuretic Peptide 132 H Total Protein 6.6 Albumin 3.9 Globulin 2.7 Albumin/Globulin Ratio 1.4 Lipase 25 PD Medical Decision Making - ED course Complexity details: reviewed results, re-evaluated patient, d/w patient ED course: Pt with SOA after recent surgery. Abdominal exam benign. VSS. EKG reviewed with no ischemia. CBC, chemistries, troponin, BNP reviewed and no significant findings. Chest XR without consolidation. Given lack of other etiology and clear Chest XR, CTA chest obtained to evaluate for pulmonary embolism. CTA negative for PE, some patchy areas of atelectasis. No pneumonia. Pt given incentive spirometer. Vitals have remained stable here. Counseled on need for continued close follow up with surgeon as well as advised on concerning symptoms to return for. Departure - Departure Disposition: Home, Self Care Clinical Impression: Shortness of breath Condition: Stable Instructions: ED Dyspnea Shortness of Breath Comments: Your testing today does not show signs of anemia, heart problem , infection or blood clot in your lung which could be explaining your shortness of air. There are findings of atelectasis on your CT scan which is small areas of collapse in your lungs which can be common after surgery and likely from not taking in big breaths. I have given you an incentive spirometer to help remind you to get some big breaths and throughout the day would recommend you use this every few hours while awake. Continue to have close follow-up with Dr. Man. Return to the ER if you develop any worsening symptoms. Forms: PCP List Discharge Date/Time: 09/11/23 17:50
--- NOTE | 2023-09-11 15:54 | XRAY Report ---
PROCEDURE: Chest 1V INDICATIONS: SOA TECHNIQUE: One view of the chest was acquired. COMPARISON: Chest 2 views dated 04/20/2017. FINDINGS: Surgical changes and devices: None. Lungs and pleura: No pleural effusions or pneumothorax. Minimal linear atelectasis, left lung base. Mediastinum: Mediastinal contours appear normal. Heart size is normal. Bones and chest wall: No suspicious bony lesions. Overlying soft tissues appear unremarkable. IMPRESSION: No acute cardiopulmonary process. Reviewed by: Shane Mckenna MD on 09/11/2023 3:53 PM PDT Approved by: Shane Mckenna MD on 09/11/2023 3:53 PM PDT Station ID: [id number]
[2023-09-11 16:00] LABS: ALBUMIN 3.9 g/dL (3.2-5.5); ALBUMIN/GLOBULIN RATIO 1.4 (1.0-2.2); BILIRUBIN,TOTAL 0.3 mg/dL (0.2-1.0); CALCIUM 9.2 mg/dL (8.5-10.3); CREATININE 0.7 mg/dL (0.6-1.3); POTASSIUM 3.8 mmol/L (3.5-4.5); TOTAL PROTEIN 6.6 g/dL (6.4-8.9)
[2023-09-11 16:03] LABS: TROPONIN I HIGH SENSITIVITY 3.1 ng/L (2.3-14.8)
[2023-09-11] MEDS ORDERED: iohexoL-300 100 ML VIAL ONE (16:06)
[2023-09-11] MEDS: iohexoL-300 100 ML VIAL IVP ONE (16:57)
--- NOTE | 2023-09-11 17:11 | CT Report ---
PROCEDURE: Angio Chest INDICATIONS: SOA/recent surgery CONTRAST: Omni 300 80ml TECHNIQUE: After the administration of intravenous contrast, 2 mm axial images were acquired from the pulmonary apices to the posterior costophrenic angles during the arterial phase. In addition, 1 mm lung kernel and 5 mm soft tissue kernel reconstructions were performed. 3-dimensional coronal oblique maximum int ensity projection (MIP) reformats, 8 mm axial MIP, and 5 mm coronal and sagittal MPR reformats were t hen performed through the thorax. For radiation dose reduction, the following was used: automated exp osure control, adjustment of mA and/or kV according to patient size. COMPARISON: CT angiogram of the chest dated 05/19/2023, CT angiogram of the chest dated 05/12/2023 FINDINGS: Image quality: Excellent. Large vessels: No filling defects within the opacified pulmonary arteries, accounting for motion and contrast timing. No evidence of acute aortic syndrome or aortic aneurysm. Lungs and pleura: Patchy bibasilar atelectasis, right greater than left. No pleural effusions. No pn eumothorax. No suspicious pulmonary nodules which require follow up. Mediastinum: Heart size is normal. No pericardial effusion. No large vessel abnormality. No mediastin al adenopathy by size criteria. Chest wall and lower neck: Thyroid is unremarkable. No axillary or supraclavicular adenopathy by size . Bones: No aggressive osseous abnormality. Upper Abdomen: Unremarkable. IMPRESSION: 1. No acute pulmonary emboli. 2. Patchy bibasilar atelectasis, right greater than left. Reviewed by: Shane Mckenna MD on 09/11/2023 5:10 PM PDT Approved by: Shane Mckenna MD on 09/11/2023 5:10 PM PDT Station ID: [id number]
[2023-09-11 17:46] VITALS: BP 155/85; O2SAT 98
== END 2023-09-11 17:50 | disposition home or self-care (01) ==
LOC: ED 14:49
DX: R06.02 Shortness of breath (principal); J98.11 Atelectasis; Z90.49 Acquired absence of other specified parts of digestive tract
CPT/HCPCS: 36415; 71045; 71275; 80053; 83690; 83880; 84484; 85025; 93005; 99283; 99284; Q9967